=== PATIENT | female | born 1990 | race Caucasian/White ===

== ENCOUNTER 2018-09-17 05:54 | Outpatient (CLI) | payer OTHER | END 2018-09-17 20:30 | disposition home or self-care (01) | LOC: OBS/DEL 05:54 | DX: O21.8 Other vomiting complicating pregnancy (principal); Z34.03 Encounter for supervision of normal first pregnancy, third trimester ==

== ENCOUNTER 2018-11-07 00:24 | Outpatient (CLI) | payer OTHER | END 2018-11-07 22:10 | disposition home or self-care (01) | LOC: OBS/DEL 00:24 | DX: O76 Abnormality in fetal heart rate and rhythm complicating labor and delivery (principal); Z34.03 Encounter for supervision of normal first pregnancy, third trimester ==

== ENCOUNTER 2018-11-12 07:14 | Inpatient (IN) | payer OTHER ==
[~2018-11-12] VITALS: Ht 160 cm; Wt 3.2 kg
[2018-11-12] MEDS ORDERED: SYNTHROID75 MCG PO (09:05)
== END 2018-11-16 11:23 | DRG 788 ==
LOC: LDR 07:14 → OB/GYN 07:14
PROVIDERS: ADMIT Obstetrics & Gynecology
PROC: 3E033VJ Introduction of Other Hormone into Peripheral Vein, Percutaneous Approach (ICD-10-PCS; 2018-11-12)
PROC: 4A1HXCZ Monitoring of Products of Conception, Cardiac Rate, External Approach (ICD-10-PCS; 2018-11-12)
PROC: 10D00Z1 Extraction of Products of Conception, Low, Open Approach (ICD-10-PCS; principal; 2018-11-13 07:00)
DX: O61.0 Failed medical induction of labor (principal); Z3A.38 38 weeks gestation of pregnancy; Z37.0 Single live birth

== ENCOUNTER 2022-08-23 09:14 | Outpatient (CLI) | payer OTHER ==
[~2022-08-23 09:14] MED LIST: SYNTHROID75 MCG PO
== END 2022-08-23 09:15 | disposition home or self-care (01) ==
LOC: LAB 09:14
PROVIDERS: ATTEND Family Medicine
DX: Z20.828 Contact with and (suspected) exposure to other viral communicable diseases (principal)